=== PATIENT | male | born 1930 | race Asian ===

== ENCOUNTER 2017-05-15 19:34 | Inpatient (IN) | payer OTHER ==
[~2017-05-15] VITALS: Ht 170.2 cm; Wt 58.3 kg
[~2017-05-15 19:34] MED LIST: ADULT LOW DOSE81 M1 PO; ATENOLOL25 MG PO; ATENOLOL50 MG PO; CENTRUM SILVER1 EAC3 PO; COZAAR50 MG PO; CYANOCOBALAM1000 MCG PO; GLYBURIDE1.25 MG PO; HYDROCODON-ACE1 EAC7 PO; LIPITOR20 MG PO; SOTALOL80 MG PO; XARELTO15 MG PO
[2017-05-15 20:15] LABS: HEMATOCRIT 42.9 % (38.0-50.0); HEMOGLOBIN 14.3 G/DL (12.5-16.6); MCH 31.9 PG (29.0-34.0); MCHC 33.3 G/DL (30.0-36.0); MCV 95.8 FL (86-99); PLATELET COUNT 126 K/uL (156-360); RBC DIS.WIDTH-CV 13.5 % (11.8-14.6); RBC DIS.WIDTH-SD 48.2 % (39-53); RED BLOOD COUNT 4.48 M/uL (4.00-5.50); WHITE BLOOD COUNT 6.5 K/uL (4.1-10.2)
[2017-05-15 20:23] LABS: ALBUMIN 3.6 g/dL (3.2-4.8); CHLORIDE 103 mEq/L (99-109); POTASSIUM 3.8 mEq/L (3.7-5.4); SODIUM 139 mEq/L (136-147)
[2017-05-15 20:25] LABS: GLUCOSE 95 mg/dL (70-99); TOTAL PROTEIN 6.1 g/dL (6.4-8.3)
[2017-05-15 20:27] LABS: TOTAL BILIRUBIN 1.4 mg/dL (0.0-1.0)
[2017-05-15 20:29] LABS: ALKALINE PHOSPHATASE 71 IU/L (3-129); CREATININE 0.8 mg/dL (0.6-1.3); GFR ESTIMATE (CALCULATED) > 59 mL/min/ (58.99-99999)
[2017-05-15 20:30] LABS: UREA NITROGEN (BUN) 13 mg/dL (9-23)
[2017-05-15 20:31] LABS: AST (GOT) 22 IU/L (2-34)
[2017-05-15 20:32] LABS: ALT (GPT) 27 IU/L (3-49)
[2017-05-15] MEDS ORDERED: CALCIUM 600 +1 EA16 PO (22:35)
[2017-05-15] MEDS ORDERED: ATORVASTATIN CA20 MG PO (22:36)
[2017-05-15] MEDS ORDERED: TRAMADOL HCL50 MG PO (22:37)
[2017-05-15] MEDS ORDERED: COMBIGAN O20 DROP/5 BOTH EYES (22:37)
[2017-05-15] MEDS ORDERED: DIABETA1.25 MG PO (22:38)
[2017-05-15] MEDS ORDERED: TRAVATAN Z5 ML BOTH EYES (22:38)
[2017-05-15] MEDS ORDERED: LOSARTAN POTASS50 MG PO (22:38)
[2017-05-15 23:38] LABS: TROP-I INTERPRETATION NEGATIVE; TROPONIN-I < 0.01 ng/mL (0.0-0.30)
[2017-05-16 00:45] VITALS: BP 120/72; BP 128/72
[2017-05-16 04:05] VITALS: BP 122/65
[2017-05-16 05:44] LABS: HEMATOCRIT 40.4 % (38.0-50.0); HEMOGLOBIN 13.2 G/DL (12.5-16.6); MCH 30.8 PG (29.0-34.0); MCHC 32.7 G/DL (30.0-36.0); MCV 94.2 FL (86-99); PLATELET COUNT 127 K/uL (156-360); RBC DIS.WIDTH-CV 13.3 % (11.8-14.6); RBC DIS.WIDTH-SD 46.5 % (39-53); RED BLOOD COUNT 4.29 M/uL (4.00-5.50); WHITE BLOOD COUNT 6.5 K/uL (4.1-10.2)
[2017-05-16 06:10] LABS: CHLORIDE 105 MEQ/L (99-109); CREATININE 0.7 MG/DL (0.6-1.3); GFR ESTIMATE (CALCULATED) > 59 mL/min/ (58.99-99999); GLUCOSE 86 mg/dL (70-99); POTASSIUM 3.8 MEQ/L (3.7-5.4); SODIUM 139 MEQ/L (136-147); UREA NITROGEN (BUN) 12 mg/dL (9-23)
[2017-05-16 07:15] VITALS: BP 106/57
[2017-05-16 12:07] VITALS: BP 104/61
[2017-05-16 19:16] VITALS: BP 128/63
[2017-05-16 23:18] VITALS: BP 90/52
[2017-05-17 03:22] VITALS: BP 102/58
[2017-05-17 05:43] LABS: TROP-I INTERPRETATION NEGATIVE; TROPONIN-I < 0.01 ng/mL (0.0-0.30)
[2017-05-17 07:46] VITALS: BP 101/59
[2017-05-17 09:09] LABS: CHLORIDE 103 MEQ/L (99-109); CREATININE 0.8 MG/DL (0.6-1.3); GFR ESTIMATE (CALCULATED) > 59 mL/min/ (58.99-99999); GLUCOSE 97 mg/dL (70-99); SODIUM 141 MEQ/L (136-147); UREA NITROGEN (BUN) 15 mg/dL (9-23)
[2017-05-17 09:40] LABS: HEMATOCRIT 41.4 % (38.0-50.0); HEMOGLOBIN 13.7 G/DL (12.5-16.6); MCH 31.4 PG (29.0-34.0); MCHC 33.1 G/DL (30.0-36.0); MCV 94.7 FL (86-99); PLATELET COUNT 142 K/uL (156-360); RBC DIS.WIDTH-CV 13.2 % (11.8-14.6); RBC DIS.WIDTH-SD 46.1 % (39-53); RED BLOOD COUNT 4.37 M/uL (4.00-5.50); WHITE BLOOD COUNT 7.7 K/uL (4.1-10.2)
[2017-05-17 11:12] VITALS: BP 96/52
[2017-05-17 11:22] LABS: APPEARANCE SL.HAZY ((CLEAR)); BILIRUBIN NEGATIVE; BLOOD MODERATE; COLOR YELLOW ((YELLOW)); GLUCOSE (STRIP) NEGATIVE; KETONES 20; LEUKOCYTES MODERATE; NITRITE NEGATIVE; PROTEIN (STRIP) NEGATIVE; SPECIFIC GRAVITY 1.017 (1.000-1.030); UROBILINOGEN 0.2 MG/DL (0.2-1.0)
[2017-05-17 11:24] LABS: BACTERIA RARE /HPF; EPITHELIAL CELLS NONE SEEN /HPF; MUCUS TRACE /LPF; RED BLOOD CELLS 30-40 /HPF (0-5); WHITE BLOOD CELLS 30-40 /HPF (0-5)
[2017-05-17 15:47] VITALS: BP 93/51
[2017-05-17 19:21] VITALS: BP 114/60
[2017-05-17 23:17] VITALS: BP 98/57
[2017-05-18 03:32] VITALS: BP 100/59
[2017-05-18 05:06] LABS: HEMATOCRIT 38.2 % (38.0-50.0); HEMOGLOBIN 12.5 G/DL (12.5-16.6)
[2017-05-18 07:30] VITALS: BP 99/58
[2017-05-18] MEDS ORDERED: HYDROCODON-ACE1 EAC7 PO (09:10)
[2017-05-18 10:46] VITALS: BP 102/55
[2017-05-18] MEDS ORDERED: MIRALAX17 GM PO (16:40)
[2017-05-18] MEDS ORDERED: COLACE100 MG PO (16:41)
[2017-05-18] MEDS ORDERED: THERAGRAN1 TABLET PO (16:42)
[2017-05-18] MEDS ORDERED: HYDROCODON-ACE1 EAC9 PO (16:43)
== END 2017-05-18 12:25 | DRG 482 ==
LOC: EME → EDBD 19:34 → 3EAST 22:46 → EDOF 22:46 → ENRESERV 22:57 → 3EAST 05-16
PROVIDERS: Emergency Medicine; Hospitalist; Internal Medicine Cardiovascular Disease; Physician Assistant
PROC: 0QS604Z Reposition Right Upper Femur with Internal Fixation Device, Open Approach (ICD-10-PCS; principal; 2017-05-16)
DX: S72.001A Fracture of unspecified part of neck of right femur, initial encounter for closed fracture (principal); I48.0 Paroxysmal atrial fibrillation; D69.6 Thrombocytopenia, unspecified; E11.51 Type 2 diabetes mellitus with diabetic peripheral angiopathy without gangrene; I10 Essential (primary) hypertension; I35.1 Nonrheumatic aortic (valve) insufficiency; W01.0XXA Fall on same level from slipping, tripping and stumbling without subsequent striking against object, initial encounter; H40.9 Unspecified glaucoma; E78.5 Hyperlipidemia, unspecified; M51.36 Other intervertebral disc degeneration, lumbar region; M10.9 Gout, unspecified; F03.90 Unspecified dementia, unspecified severity, without behavioral disturbance, psychotic disturbance, mood disturbance, and anxiety; Z80.8 Family history of malignant neoplasm of other organs or systems; Z85.46 Personal history of malignant neoplasm of prostate; Z80.3 Family history of malignant neoplasm of breast; Z90.49 Acquired absence of other specified parts of digestive tract; I35.2 Nonrheumatic aortic (valve) stenosis with insufficiency; I27.20 Pulmonary hypertension, unspecified; Z79.01 Long term (current) use of anticoagulants
CPT/HCPCS: 70450; 71046; 73502; 76000; 80048; 80053; 81003; 82948; 84484; 85014; 85018; 85027; 85610; 85730; 86850; 86900; 86901; 93005; 93306; 99281; 99285; A6214; C1713; J0690; J1170; J2370; J2405; J7030

== ENCOUNTER 2017-05-18 12:29 | Inpatient (IN) | payer OTHER ==
[~2017-05-18] VITALS: Ht 170.2 cm; Wt 58.2 kg
[~2017-05-18 12:29] MED LIST changes: +ATORVASTATIN CA20 MG PO; +CALCIUM 600 +1 EA16 PO; +COMBIGAN O20 DROP/5 BOTH EYES; +DIABETA1.25 MG PO; +LOSARTAN POTASS50 MG PO; +TRAMADOL HCL50 MG PO; +TRAVATAN Z5 ML BOTH EYES
[2017-05-18 12:30] VITALS: BP 93/57
[2017-05-18 16:27] VITALS: BP 143/71
[2017-05-18] MEDS ORDERED: MIRALAX17 GM PO (16:40)
[2017-05-18] MEDS ORDERED: COLACE100 MG PO (16:41)
[2017-05-18] MEDS ORDERED: THERAGRAN1 TABLET PO (16:42)
[2017-05-18] MEDS ORDERED: HYDROCODON-ACE1 EAC9 PO (16:43)
[2017-05-19] VITALS: BP 100/57
[2017-05-19 05:49] VITALS: BP 124/76
[2017-05-19 08:55] LABS: HEMATOCRIT 46.4 % (38.0-50.0); MCH 30.7 PG (29.0-34.0); MCHC 32.1 G/DL (30.0-36.0); MCV 95.7 FL (86-99); PLATELET COUNT 175 K/uL (156-360); RBC DIS.WIDTH-CV 12.9 % (11.8-14.6); RBC DIS.WIDTH-SD 45.8 % (39-53); RED BLOOD COUNT 4.85 M/uL (4.00-5.50); WHITE BLOOD COUNT 6.4 K/uL (4.1-10.2)
[2017-05-19 09:03] LABS: ALBUMIN 3.4 G/DL (3.2-4.8); ALKALINE PHOSPHATASE 51 IU/L (3-129); ALT (GPT) 11 IU/L (3-49); AST (GOT) 20 IU/L (2-34); CHLORIDE 101 MEQ/L (99-109); CREATININE 0.7 MG/DL (0.6-1.3); GFR ESTIMATE (CALCULATED) > 59 mL/min/ (58.99-99999); GLUCOSE 118 mg/dL (70-99); POTASSIUM 4.1 MEQ/L (3.7-5.4); SODIUM 144 MEQ/L (136-147); UREA NITROGEN (BUN) 10 mg/dL (9-23)
[2017-05-19 09:06] LABS: HEMOGLOBIN 14.9 G/DL (12.5-16.6)
[2017-05-19 15:13] VITALS: BP 100/57
[2017-05-20 05:17] VITALS: BP 111/66
[2017-05-20 15:25] VITALS: BP 103/60
[2017-05-21 05:39] VITALS: BP 106/60
[2017-05-21 14:51] VITALS: BP 105/53
[2017-05-22 05:31] VITALS: BP 111/68
[2017-05-22 14:49] VITALS: BP 110/89
[2017-05-23 05:51] VITALS: BP 94/61; BP 98/61
== END 2017-05-23 09:58 | disposition home health service (06) | DRG 561 ==
LOC: 3WEST 12:29
PROVIDERS: Physical Medicine & Rehabilitation Pain Medicine
PROC: F07M0ZZ Range of Motion and Joint Mobility Treatment of Musculoskeletal System - Whole Body (ICD-10-PCS; principal; 2017-05-18)
DX: S72.001D Fracture of unspecified part of neck of right femur, subsequent encounter for closed fracture with routine healing (principal); W01.0XXD Fall on same level from slipping, tripping and stumbling without subsequent striking against object, subsequent encounter; M16.12 Unilateral primary osteoarthritis, left hip; G89.18 Other acute postprocedural pain; E11.9 Type 2 diabetes mellitus without complications; D69.6 Thrombocytopenia, unspecified; E83.51 Hypocalcemia; M1A.9XX0 Chronic gout, unspecified, without tophus (tophi); H40.9 Unspecified glaucoma; I10 Essential (primary) hypertension; I48.91 Unspecified atrial fibrillation; M85.80 Other specified disorders of bone density and structure, unspecified site; M48.061 Spinal stenosis, lumbar region without neurogenic claudication; M51.36 Other intervertebral disc degeneration, lumbar region; R53.1 Weakness; Z90.49 Acquired absence of other specified parts of digestive tract; Z85.46 Personal history of malignant neoplasm of prostate; Z88.0 Allergy status to penicillin; Z79.01 Long term (current) use of anticoagulants; Z82.49 Family history of ischemic heart disease and other diseases of the circulatory system
CPT/HCPCS: 80053; 85027; 97110 GO; 97530 GP; A6214